=== PATIENT | female | born 1965 | race African-American/Black ===

== ENCOUNTER 2022-10-01 09:33 | Emergency (ER) | payer OTHER ==
[2022-10-01 09:40] VITALS: BP 119/83; PULSE 63; RESP 20; TEMP 98.3; BMI 28.3
== END 2022-10-01 10:48 | disposition home or self-care (01) ==
LOC: FER 09:33
DX: R10.33 Periumbilical pain (principal); R11.0 Nausea; K46.9 Unspecified abdominal hernia without obstruction or gangrene
CPT/HCPCS: 99282-25

== ENCOUNTER 2022-10-21 05:54 | Emergency (ER) | payer OTHER ==
[2022-10-21 06:03] VITALS: BP 128/66; PULSE 56; RESP 16; TEMP 98.2; BMI 28.3
[2022-10-21] MEDS ORDERED: ONDANSETRON 4 MG/2 ML VIAL IVPUSH ONE (06:12)
[2022-10-21] MEDS ORDERED: SODIUM CHLORIDE 1,000 ML IV ONE (06:12)
[2022-10-21] MEDS ORDERED: ONDANSETRON 4 MG/2 ML VIAL ONE (06:18)
[2022-10-21 07:51] LABS: EPITHELIAL CELLS FEW /hpf
[2022-10-21 07:55] LABS: HEMATOCRIT 42.3 % (32.4-45.2); HEMOGLOBIN 14.1 G/dL (10.7-15.3); MCH 30.3 pg (25.7-33.7); MCHC 33.3 g/dl (32.0-36.0); MEAN CELL VOLUME 90.9 fl (80-96); MEAN PLT VOLUME 8.8 fl (7.5-11.1); PLATELET COUNT 159.3 10^3/uL (134-434); RBC 4.65 10^6/uL (3.60-5.2); WHITE BLOOD COUNT 5.9 10^3/uL (4.0-10.8)
[2022-10-21 08:18] LABS: ALBUMIN 4.2 g/dl (3.4-5.0); BILIRUBIN,TOTAL 0.3 mg/dl (0.2-1); CALCIUM 9.1 mg/dl (8.5-10.1); CREATININE 0.8 mg/dl (0.6-1.3); POTASSIUM 4.1 mmol/L (3.5-5.1); SGOT/AST 16.1 U/L (15-37); SGPT/ALT 12.3 U/L (7-52); TOT PROT 6.4 g/dl (6.4-8.2)
== END 2022-10-21 08:38 | disposition home or self-care (01) ==
LOC: FER 05:54
PROC: 3E033GC Introduction of Other Therapeutic Substance into Peripheral Vein, Percutaneous Approach (ICD-10-PCS; principal; 2022-10-21)
DX: R10.13 Epigastric pain (principal)
CPT/HCPCS: 36415; 80053; 81003; 81015; 85027; 93005; 99284-25

== ENCOUNTER 2024-10-02 07:56 | Day surgery (SDC) | payer OTHER ==
[2024-09-30 10:58] VITALS: BMI 31.7
[2024-10-02] MEDS ORDERED: LIDOCAINE HCL/PF 2% SDV 5ML VIAL ONE (08:00)
[2024-10-02] MEDS ORDERED: PROPOFOL 80 ML ONE (08:01)
[2024-10-02 08:11] VITALS: TEMP 97
[2024-10-02 08:55] VITALS: PULSE 70; RESP 18
[2024-10-02 08:56] VITALS: BP 132/62
== END 2024-10-02 09:26 | disposition home or self-care (01) ==
LOC: FASU-ENDO 07:56
PROVIDERS: ATTEND Internal Medicine Gastroenterology
PROC: 0DJD8ZZ Inspection of Lower Intestinal Tract, Via Natural or Artificial Opening Endoscopic (ICD-10-PCS; principal; 2024-10-02 08:27)
DX: Z12.11 Encounter for screening for malignant neoplasm of colon (principal); K57.30 Diverticulosis of large intestine without perforation or abscess without bleeding